=== PATIENT | female | born 1985 | race Asian ===

== ENCOUNTER 2018-02-18 20:43 | Emergency (ER) | payer OTHER ==
--- NOTE | 2018-02-18 21:40 | EDPHY ---
H & P Stated Complaint: ? Allergic reaction Time Seen by Provider: 02/18/18 21:42 HPI/ROS: HPI CHIEF COMPLAINT: Allergic reaction, tongue itching/swelling. HISTORY OF PRESENT ILLNESS: A 32-year-old female, otherwise healthy visiting from [facility], presents emergency room with proceed tongue swelling and itchiness. States she had [place] tonight. No known allergic reaction history. Denies any hives denies GI upset denies chest pain or shortness of breath, denies throat swelling. Main complaint perceived tongue swelling and itching. Past Medical History: Denies significant medical history Past Surgical History: He denies significant surgical history Social History: Denies daily use drugs alcohol tobacco. Family History: Noncontributory ROS REVIEW OF SYSTEMS: A comprehensive 10 point review of systems is otherwise negative aside from elements mentioned in the history of present illness. Exam Constitutional a appears well nontoxic no acute distress triage nursing summary reviewed, vital signs reviewed, awake/alert. Eyes normal conjunctivae and sclera, EOMI, PERRLA. HENT oropharynx: No visible swelling, no evidence of tongue swelling or angioedema, posterior pharynx unremarkable, no stridor good air movement, not drooling, moist mucus membranes, no epistaxis, neck supple/ no meningismus, no raccoon eyes. Respiratory clear to auscultation bilaterally, normal breath sounds, no respiratory distress, no wheezing. Cardiovascular rate normal, regular rhythm, no murmur, no edema, distal pulses normal. Gastrointestinal soft, non-tender, no rebound, no guarding, normal bowel sounds, no distension, no pulsatile mass. Genitourinary no CVA tenderness. Musculoskeletal no midline vertebral tenderness, full range of motion, no calf swelling, no tenderness of extremities, no meningismus, good pulses, neurovascularly intact. Skin pink, warm, & dry, no rash, skin atraumatic. Neurologic awake, alert and oriented x 3, AAOx3, moves all 4 extremities equally, motor intact, sensory intact, CN II-XII intact, normal cerebellar, normal vision, normal speech. Psychiatric normal mood/affect. Heme/Lymph/Immune no lymphadenopathy. Differential Diagnosis: Includes but is not limited to in a particular order acute allergic reaction, anaphylaxis, angioedema Medical Decision Making: Here in the emergency room this patient appears very well nontoxic in no acute distress. No visible tongue swelling on exam. No stridor. No rash. No urticaria. Patient be given prednisone 60 mg p. O., Benadryl 25 mg p. O., Zantac 50 mg p.o.. And will re-evaluate The patient also requested to basically immediately be discharged after giving medications as she wants to get on a flight to go to [facility] her flight scheduled at midnight it is now 10:00 p.m.. I explained that is not possible to [facility] and get on a 12 o' clock flight at 10:00 p.m.. Especially with allergic reaction type symptoms. I told her this was not a good idea. She has agreed with this. And agrees to stay in emergency room for treatment. Observation. Re-evaluation: 2241: Patient re-evaluated resting comfortably no acute distress at this time. There has been no progression of allergic reaction she has been here for over 2 hr. She is requesting discharge. She is able swallow appropriately breathe appropriately in no distress. Will placed on prednisone, Pepcid, Benadryl for the next 3 days. She was due to fly tonight at midnight to [place] in [place] where she resides. I will give her airline excuse. Highly recommend she does not fly. Return precautions discussed she understands return emergency room if she has any further signs or symptoms of allergic reaction. Source: Patient - Personal History LMP (Females 10-55): Now Current Tetanus/Diphtheria Vaccine: Unsure Current Tetanus Diphtheria and Acellular Pertussis (TDAP): Unsure - Medical/Surgical History Hx Asthma: No Hx Chronic Respiratory Disease: No Hx Diabetes: No Hx Cardiac Disease: No Hx Renal Disease: No Hx Cirrhosis: No Hx Alcoholism: No Hx HIV/AIDS: No Hx Splenectomy or Spleen Trauma: No - Social History Smoking Status: Never smoked Constitutional: Initial Vital Signs Temperature (C) 36.6 C 02/18/18 20:44 Heart Rate 93 02/18/18 20:44 Respiratory Rate 22 H 02/18/18 20:44 Blood Pressure 130/89 H 02/18/18 20:44 O2 Sat (%) 98 02/18/18 20:44 O2 Delivery Mode Room Air Allergies/Adverse Reactions: No Known Allergies Allergy (Unverified 02/18/18 20:46) Home Medications: Medication Instructions Recorded Famotidine [Pepcid 20 MG (*)] 20 mg PO BID #6 tab 02/18/18 diphenhydrAMINE [Benadryl 25 MG 25 mg PO BID #6 tab 02/18/18 (*)] predniSONE 60 mg PO DAILY #9 tab 02/18/18 Medical Decision Making - Data Points Medications Given: Discontinued Medications Diphenhydramine HCl (Benadryl) 25 mg PO EDNOW ONE Stop: 02/18/18 21:51 Last Admin: 02/18/18 21:57 Dose: 25 mg Prednisone (Prednisone) 60 mg PO EDNOW ONE Stop: 02/18/18 21:51 Last Admin: 02/18/18 21:57 Dose: 60 mg Ranitidine HCl (Zantac) 50 mg PO EDNOW ONE Stop: 02/18/18 22:16 Last Admin: 02/18/18 22:16 Dose: 50 mg Departure - Departure Disposition: Home, Routine, Self-Care Clinical Impression: Allergic reaction Qualifiers: Encounter type: initial encounter Qualified Code(s): T78.40XA - Allergy, unspecified, initial encounter Condition: Good Instructions: Urticaria (ED), Food Allergy (ED), Allergies (ED) Additional Instructions: 1. Return emergency room if you have progression or worsening symptoms. 2. Do not fly tonight 3. Return to the emergency room if there is any worsening symptoms questions or concerns. Referrals: NONE *PRIMARY CARE P,. [Primary Care Provider] - As per Instructions Stand Alone Forms: Airline Excuse Prescriptions: diphenhydrAMINE [Benadryl 25 MG (*)] 25 mg PO BID #6 tab Famotidine [Pepcid 20 MG (*)] 20 mg PO BID #6 tab predniSONE 60 mg PO DAILY #9 tab
[2018-02-18] MEDS ORDERED: predniSONE 20 MG TAB PO ONE (21:50)
[2018-02-18] MEDS ORDERED: diphenhydrAMINE 25 MG CAP PO ONE (21:50)
[2018-02-18] MEDS ORDERED: RANITIDINE SYRUP 15 MG/1 ML UDSYR PO SCH (22:00)
[2018-02-18] MEDS ORDERED: RANITIDINE HCL 150 MG/10 ML UDCUP PO ONE (22:15)
[2018-02-18 22:49] VITALS: BP 121/80
== END 2018-02-18 22:48 | disposition home or self-care (01) ==
DX: T78.40XA Allergy, unspecified, initial encounter (principal)
CPT/HCPCS: J7512